=== PATIENT | female | born 1990 | race Asian ===

== ENCOUNTER 2024-05-26 08:00 | Outpatient (CLI) | payer OTHER ==
[2024-05-26 16:36] LABS: BILIRUBIN,URINE NEGATIVE (NEGATIVE); GLUCOSE, URINE (UA) NEGATIVE (NEGATIVE); KETONES,URINE (UA) NEGATIVE (NEGATIVE); LEUKOCYTE ESTERASE, URINE NEGATIVE (NEGATIVE); NITRITE,URINE NEGATIVE (NEGATIVE); OCCULT BLOOD,URINE NEGATIVE (NEGATIVE); PROTEIN,URINE NEGATIVE (NEGATIVE); UROBILINOGEN,URINE 0.2 (NORMAL) E.U./dL (NORMAL)
[2024-05-26 16:38] LABS: CLARITY,URINE CLEAR (CLEAR)
[2024-05-26 16:45] LABS: BACTERIA,URINE Moderate /HPF (None Seen); RBC,URINE 0-5 /HPF (0-5); SQUAMOUS EPITHELIAL CELL,UR MOD Squamous (<= Few); WBC,URINE 0-3 /HPF (0-5)
== END 2024-05-26 23:59 | disposition home or self-care (01) ==
LOC: LAB.WC 08:00
PROVIDERS: ATTEND Nurse Practitioner
DX: Z34.80 Encounter for supervision of other normal pregnancy, unspecified trimester (principal)
CPT/HCPCS: 81001; 87086

== ENCOUNTER 2024-12-14 16:52 | Inpatient (IN) ==
[2024-12-14] MEDS ORDERED: hydrALAZINE INJ 20 MG/ML VIAL IVP PRN (17:24)
[2024-12-14] MEDS ORDERED: lidocaine 1% 20 ML MDV ID PRN (17:24)
[2024-12-14] MEDS ORDERED: SODIUM CHLORIDE FLUSH 0.9% 10 ML SYRINGE IVP PRN (17:24)
[2024-12-14] MEDS ORDERED: TRANEXAMIC ACID IN NACL 1,000 MG/100 ML BAG IV PRN (17:24)
[2024-12-14] MEDS ORDERED: miSOPROStoL 200 MCG TABLET PR PRN (17:24)
[2024-12-14] MEDS ORDERED: LABETALOL 20 MG/4 ML SYRINGE IVP PRN ×3 (17:24)
[2024-12-14] MEDS ORDERED: METHYLERGONOVINE 0.2 MG/ML VIAL IM PRN (17:24)
[2024-12-14] MEDS ORDERED: miSOPROStoL 200 MCG TABLET BC PRN (17:24)
[2024-12-14] MEDS ORDERED: OXYTOCIN 10 UNIT/ML VIAL IM PRN (17:24)
[2024-12-14] MEDS ORDERED: fentaNYL 100 MCG/2 ML VIAL IVP PRN (17:24)
[2024-12-14] MEDS ORDERED: NIFEdipine 10 MG CAPSULE PO PRN (17:24)
[2024-12-14] MEDS ORDERED: TERBUTALINE 1 MG/ML VIAL SUBQ PRN (17:24)
[2024-12-14] MEDS ORDERED: OXYTOCIN/SODIUM CHLORIDE 500 ML IV PRN (17:24)
--- NOTE | 2024-12-14 17:33 | PROVIDER PROGRESS NOTE ---
HPI Current : Current [facility] 12/29/24 Gestation 37 Weeks and 6 Days Para 1 Vital Signs Temperature 36.8 C 12/14/24 17:10 Pulse Rate 95 12/14/24 17:10 Respiratory Rate 16 12/14/24 17:10 Blood Pressure 134/75 H 12/14/24 17:10 Procedures NST Procedure: NST Procedure Start Date 12/14/24 Start Time 17:01 Stop Time 17:21 Vibroacoustic Stimulation Used No Patient States Movement Yes Plan Plan: Patient triaged: @ 37+6 days gestation. Reactive NST FHT 135, moderate variability, + accelerations, - decelerations 5/80/-2, intact Katie q 2-3 minutes, moderate intensity, soft uterine resting tone. Desires admission for expectant management.
--- NOTE | 2024-12-14 17:39 | HISTORY & PHYSICAL EXAMINATION ---
Admit History Smoking Status: Never smoker Other Maternal History Other Maternal History: HPI: This 33 yo @ 37+6 weeks by LMP and confirmed by 14+0 week ultrasound. She started stephan q 10 minutes yesterday and was checked in the clinic yesterday and was 3-4cm/60%/-3. She was able to get some sleep last night but the pain woke her up later in the morning and they continued to become stronger and closer together. Upon arrival her cervix was 5/80/-2 and vertex with intact membranes. We reviewed management options at length and patient desires to be admitted for expectant management. She has been a patient of [facility] for the duration of her which has remained uncomplicated with the exception of GDM A1, very tight control. ROS: No Headache, visual changes or right upper quadrant abdominal pain. Denies significant N/V. Denies urinary urgency or dysuria. All other symptoms reviewed and were negative except per HPI. In the event of an emergency, accepts the administration of blood products. Recent BP: WNL Labs: pending Last u/s EFW: 2946 g, 50th percentile @ 36+3 weeks Total maternal weight gain: 41# OB Hx: G1: 06/16/2018 @ [facility]. Male (Winter) 7# 4oz, had an epidural at 8cm, then delivered quickly thereafter. Had severe hypotensive event during epidural placement as well that she associates with the as the placement and were so close in timing. Very short second stage. Pushed 5-10 minutes. G2: current Medical Hx: No significant Surgical Hx: None Social Hx: Monogamous with male partner. Denies current use of alcohol or tobacco, marijuana or other recreational drugs. Reports that she is safe in current relationship. [place] until January 2025 [place] Family Hx: Denies family history of congenital anomalies, Cystic Fibrosis or chromosomal abnormalities LMP: 03/24/2024 TESS by LMP: 12/29/2024 U/S: 06/30/2024 @ 14 weeks TESS. C/W LMP dating Final TESS: 12/30/2023 Problem- GDM A1, diabetic education completed. Monthly growth scans ordered Allergies: NKDA RX: PNV, Iron FMHX: FOB: Fely Senior Other Children: Son (Winter), age 6 sex: Its a BOY! Vinicio Pre- weight: 112 BMI: 18.6 Blood type: AB pos Antibody screen: neg CBC: PLT 221 HCT36.2 HGB 11.8 Rubella: immune VZV: immune HBsAg: neg HepC: NR RPR/AB-EIA: NR HIV: NR Flu: desires at next visit COVID: x3, declines booster PAP: UTD per pt GC/CT: neg HSV: denies in self and partner Genetic Testing: NIPT neg FAS: Placenta: posterior, no previa Cord: 3 VC VIANEY: 14cm EFW: 61.5%tile 12/05/2024 u/s IMPRESSION: 1.Single live intrauterine consistent with 36 weeks and 3 days. Normal interval growth with estimated weight in the 50th percentile. 2.Again seen mild bilateral pelvocaliectasis measuring 5 mm on the right and 7 mm on the left, upper limits of normal on the left and stable compared to prior. 50gm GCT: 169 3 hr GTT: F-91, 1hr 187 2hr 196 3hr 160 TDAP: 10/18/2024 Breast Pump: 10/18/2024 3rd trimester 184 33.5/10.7 GBS: Negative Delivery plan: Anticipate . Desires unmedicated delivery. Had a poor experience with epidural with her first delivery. Made it to 8cm and then asked for epidural and had to have 2 attempts as first only numbed her legs and she was still able to feel contractions. She then had severely decreased blood pressure and passed out. Delivered her baby 20 minutes later after a 5-10 minute second stage and feels that whole experience was very traumatic. contraception plan: undecided Physical exam: Normocephalic, atraumatic No increased work of breathing Abdomen gravid, soft, nontender. EFW 3300 FHR baseline 134-140, moderate variability, + accelerations, no significant decelerations Contractions palpate moderate every 3-5 minutes with soft resting tone SVE 5/80/-2, vertex, membranes intact Bilateral LE's trace edema Mood is good. Assessment: 33 yo @ 37+6 weeks gestation by sure LMP and 14 week U/S Latent labor Advanced dilatation in multiparous patient FHR 135-145 Cat I GBS NEG Plan: Admit to [facility] for expectant management Intermittent heart rate auscultation. Okay for NST q 2 hours until labor advances. Jacuzzi PRN. Nitrous oxide PRN. Epidural PRN Maternal Request. Anticipate . HPI Current : Current [facility] 12/29/24 Gestation 37 Weeks and 6 Days Para 1 Vital Signs Temperature 36.8 C 12/14/24 17:10 Pulse Rate 95 12/14/24 17:10 Respiratory Rate 16 12/14/24 17:10 Blood Pressure 134/75 H 12/14/24 17:10 NST Procedure NST Procedure: NST Procedure Start Date 12/14/24 Start Time 17:01 Stop Time 17:21 Vibroacoustic Stimulation Used No Patient States Movement Yes Meds/Allgy Home Medications Ambulatory Orders Medication Instructions Recorded Confirmed vitamins no.159-iron tab PO 06/30/24 12/13/24 fumarate 28 mg-folic acid 800 mcg tablet ( Vitamin) blood sugar diagnostic #200 ea 10/14/24 12/13/24 blood-glucose meter #1 ea 10/14/24 12/13/24 ferrous sulfate 325 mg (65 mg 325 mg PO BID #180 tabs 10/14/24 12/13/24 iron) tablet lancets #200 ea 10/14/24 12/13/24 Allergies Allergies Allergy/AdvReac Type Severity Reaction Status Date / Time No Known Drug Allergies Allergy Verified 12/13/24 13:36 PFSH Active Problems All Active Problems (Updated 10/14/24 @ 12:46 by Haily Gonzalez CNM, RIK) Anemia complicating (Acute) Gestational diabetes mellitus (GDM) (Acute) Influenza A (Acute) URI (upper respiratory infection) (Acute) Supervision of normal intrauterine in multigravida in second trimester (Acute) Medical History Medical History (Updated 10/14/24 @ 12:46 by Haily Gonzalez CNM, RIK) Impaired glucose in , antepartum Supervision of normal intrauterine in multigravida in first trimester Family History Family History (Updated 06/30/24 @ 13:27 by Sherin Lovell MA) Mother High blood pressure Father High blood pressure Social History Social History Smoking Status: Never smoker Do you vape?: No Physical Abdominal Exam Vital Signs: Temp Pulse Resp BP 36.8 C 95 16 134/75 H 12/14/24 17:10 12/14/24 17:10 12/14/24 17:10 12/14/24 17:10 Plan for Labor Plan For Labor I expect patient to be DC'd or transferred within 96 hours.: Yes
[2024-12-14 18:19] LABS: BASOPHILS % (AUTO) 0.2 %; EOSINOPHILS # (AUTO) 0.1 10^3/uL (0.0-0.7); EOSINOPHILS % (AUTO) 0.7 %; HCT - HEMATOCRIT 39.3 % (37.0-47.0); HGB - HEMOGLOBIN 12.8 g/dL (12.0-16.0); LYMPHOCYTES # (AUTO) 2.3 10^3/uL (1.5-3.5); LYMPHOCYTES % (AUTO) 27.3 %; MEAN CORPUSCULAR HEMOGLOBIN 28.2 pg (27.0-31.0); MEAN CORPUSCULAR HGB CONC 32.6 g/dL (32.0-36.0); MEAN CORPUSCULAR VOLUME 86.6 fL (81.0-99.0); MEAN PLATELET VOLUME 9.5 fL (7.9-10.8); MONOCYTES # (AUTO) 0.7 10^3/uL (0.0-1.0); MONOCYTES % (AUTO) 8.3 %; NEUTROPHILS # (AUTO) 5.1 10^3/uL (1.5-6.6); PLT - PLATELET COUNT 170 10^3/uL (130-450); RED BLOOD COUNT 4.54 10^6/uL (4.20-5.40); RED CELL DISTRIBUTION WIDTH 13.8 % (12.0-15.0); WHITE BLOOD COUNT 8.3 x10^3/uL (4.8-10.8)
--- NOTE | 2024-12-14 20:29 | PROVIDER PROGRESS NOTE ---
Labor Progress Note Labor Progress Note Labor Progress Note/Additional Text: SVE /-1, becoming more uncomfortable but still laughing between contractions. Continues to desire an unmedicated . Well supported tonight by her sister and her adult niece. Desires labor augmentation. AROM, large amount of moderately thick meconium. Meconium communicated with pediatrics and back up OB. Transition to continuos monitoring.
[2024-12-15] MEDS: LACTATED RINGERS 1,000 ML IV PRN (00:20)
[2024-12-15] MEDS: OXYTOCIN/SODIUM CHLORIDE 500 ML IV SCH (00:20)
[2024-12-15] MEDS: SODIUM CHLORIDE FLUSH 0.9% 10 ML SYRINGE IVP SCH (00:45)
--- NOTE | 2024-12-15 05:55 | PROVIDER PROGRESS NOTE ---
Subjective Subjective Subjective: Labor progressing, Arleth describes increasing discomfort and less of an ability to "laugh." SVE 7/80/0 (SVE essentially unchanged from 0330 but a notable change in station from -1 to 0 station) category I tracing. Pitocin titration at 5mu/min. Contractions q 1-4 minutes, dysfunctional labor pattern. Coupling/tripling. FHR baseline 140, moderate variability, + accelerations, reassuring early decelerations. Declined trial of nitrous. Desires epidural. Anesthesia on unit with another patient but will notify when he is able to leave the room. Discussed with primary RN recommendation for fluid bolus prior to epidural placement as she had significant syncopal episode with previous . Current Medications Current Medications Current Medications: Current Medications Generic Name Dose Route Start Last Admin Trade Name Freq PRN Reason Stop Dose Admin Acetaminophen 1,000 mg 12/14/24 17:24 Acetaminophen 500 Mg Tablet PO Q8H PRN Mild Pain or Fever>38C(100.4F) Fentanyl 50 mcg 12/14/24 17:24 Fentanyl 100 Mcg/2 Ml Vial IVP Q1H PRN Severe Pain (score 7-10) Ferrous Sulfate 325 mg 12/14/24 21:00 Ferrous Sulfate 325 Mg Tablet PO BID TONYA Hydralazine HCl 5 - 10 mg 12/14/24 17:24 Hydralazine Inj 20 Mg/Ml Vial IVP Q20M PRN SBP> or= 160 OR DBP> or= 110 Protocol Lactated Ringer's 500 mls @ 999 mls/hr 12/14/24 17:24 12/15/24 00:20 Lr IV 100 mls/hr PRN PRN Administration intrauterine resuscitation Oxytocin/Sodium Chloride 500 mls @ 999 mls/hr 12/14/24 17:24 Pitocin/Sodium Chloride IV PRN PRN POST- HEMORR PREVENTION Protocol 999 MILLIUNIT/MIN Tranexamic Acid 1,000 mg in 100 mls @ 600 mls/hr 12/14/24 17:24 Tranexamic 1,000 Mg/100ml-Nacl IV Q30M PRN EBL >1200mL and within 3hr Oxytocin/Sodium Chloride 500 mls @ 1 mls/hr 12/15/24 01:00 12/15/24 05:13 Pitocin/Sodium Chloride IV 6 milliunit/min TITR TONYA 6 mls/hr Titration Protocol 1 MILLIUNIT/MIN Labetalol HCl 20 - 80 mg 12/14/24 17:24 Labetalol 20 Mg/4 Ml Syringe IVP Q10M PRN SBP> or= 160 OR DBP> or= 110 Protocol Labetalol HCl 20 mg 12/14/24 17:24 Labetalol 20 Mg/4 Ml Syringe IVP .ONCE PRN SBP> or= 160 OR DBP> or= 110 Protocol Labetalol HCl 20 - 40 mg 12/14/24 17:24 Labetalol 20 Mg/4 Ml Syringe IVP Q10M PRN SBP> or= 160 OR DBP> or= 110 Protocol Lidocaine HCl 20 ml 12/14/24 17:24 Lidocaine 1% 20 Ml Mdv ID 12/17/24 17:24 .ONCE PRN PERINEAL REPAIR Methylergonovine Maleate 0.2 mg 12/14/24 17:24 Methylergonovine 0.2 Mg/Ml Vial IM .ONCE PRN Hemorrhage Misoprostol 600 mcg 12/14/24 17:24 Misoprostol 200 Mcg Tablet BC .ONCE PRN Hemorrhage Misoprostol 800 mcg 12/14/24 17:24 Misoprostol 200 Mcg Tablet MD .ONCE PRN Hemorrhage Nifedipine 10 - 20 mg 12/14/24 17:24 Nifedipine 10 Mg Capsule PO Q20M PRN SBP> or= 160 OR DBP> or= 110 Protocol Oxytocin 10 unit 12/14/24 17:24 Oxytocin 10 Unit/Ml Vial IM .ONCE PRN Step One if no IV access. Multivit/Folic Acid/Iron 1 tab 12/15/24 08:00 Vitamin Tablet PO DAILYWM TONYA Sodium Chloride 10 ml 12/14/24 17:24 Sodium Chloride Flush 0.9% 10 Ml Syringe IVP PRN PRN NEEDED PER PROVIDER ORDERS Sodium Chloride 10 ml 12/14/24 18:00 12/15/24 00:45 Sodium Chloride Flush 0.9% 10 Ml Syringe IVP Not Given Q8H TONYA Terbutaline Sulfate 0.25 mg 12/14/24 17:24 Terbutaline 1 Mg/Ml Vial SUBQ .ONCE PRN Tachystole Objective Vital Signs/Intake & Output Intake & Output: Intake & Output 12/12/24 12/13/24 12/14/24 12/15/24 23:59 23:59 23:59 23:59 Intake Total Balance Weight (kg) 153 lb Lab Results 12/14/24 18:13 Other Labs: Lab Results x24hrs 12/14/24 Range/Units 18:13 WBC 8.3 (4.8-10.8) x10^3/uL RBC 4.54 (4.20-5.40) 10^6/uL Hgb 12.8 (12.0-16.0) g/dL Hct 39.3 (37.0-47.0) % MCV 86.6 (81.0-99.0) fL MCH 28.2 (27.0-31.0) pg MCHC 32.6 (32.0-36.0) g/dL RDW 13.8 (12.0-15.0) % Plt Count 170 (130-450) 10^3/uL MPV 9.5 (7.9-10.8) fL Neut # (Auto) 5.1 (1.5-6.6) 10^3/uL Lymph # (Auto) 2.3 (1.5-3.5) 10^3/uL [place] # (Auto) 0.7 (0.0-1.0) 10^3/uL Eos # (Auto) 0.1 (0.0-0.7) 10^3/uL Baso # (Auto) 0.0 (0.0-0.1) 10^3/uL Absolute Nucleated RBC 0.00 x10^3/uL Nucleated RBC % 0.0 /100WBC Blood Type AB POSITIVE Antibody Screen NEGATIVE
[2024-12-15] MEDS ORDERED: ROPIVACAINE 0.2% 200 MG/100 ML BAG EP ONE (06:01)
[2024-12-15] MEDS ORDERED: LIDOCAINE 2%-EPI 1:100000 20 ML MDV ONE (06:01)
[2024-12-15] MEDS ORDERED: ePHEDrine 50 MG/ML VIAL IVP PRN (07:16)
[2024-12-15] MEDS ORDERED: LACTATED RINGERS 500 ML IV ONE (07:16)
[2024-12-15] MEDS ORDERED: NALOXONE 0.4 MG/ML VIAL IVP PRN (07:16)
[2024-12-15] MEDS ORDERED: ROPIVACAINE 0.2% 200 MG/100 ML BAG EP PRN (07:16)
[2024-12-15] MEDS ORDERED: METOCLOPRAMIDE 10 MG/2 ML VIAL IVP PRN (07:16)
[2024-12-15] MEDS ORDERED: ONDANSETRON 4 MG/2 ML VIAL IVP PRN (07:16)
[2024-12-15] MEDS ORDERED: NALBUPHINE 10 MG/ML AMP IVP PRN (07:16)
[2024-12-15] MEDS ORDERED: diphenhydrAMINE INJ 50 MG/ML VIAL IVP PRN (07:16)
--- NOTE | 2024-12-15 07:21 | ANESTHESIA PROCEDURE NOTE ---
Pre-Anesthesia VS, & Labs Diagnosis Surgical Diagnosis:: labor pain Procedure Procedure: labor epidural Vitals Vital Signs: Temp Pulse Resp BP 36.8 C 95 16 134/75 H 12/14/24 17:28 12/14/24 17:10 12/14/24 17:10 12/14/24 17:10 Height (in): 5 ft Weight (kg): 69 kg Body Mass Index: 29.7 BMI Classification: Overweight NPO Last Fluid Intake: clears now Is Patient ?: Yes Lab Results Current Lab Results: Laboratory Tests 12/14/24 18:13: WBC 8.3, RBC 4.54, Hgb 12.8, Hct 39.3, MCV 86.6, MCH 28.2, MCHC 32.6, RDW 13.8, Plt Count 170, MPV 9.5, Neut # (Auto) 5.1, Lymph # (Auto) 2.3, [place] # (Auto) 0.7, Eos # (Auto) 0.1, Baso # (Auto) 0.0, Absolute Nucleated RBC 0.00, Nucleated RBC % 0.0, Blood Type AB POSITIVE, Antibody Screen NEGATIVE Lab results reviewed: Yes 12/14/24 18:13 Meds/Allgy Home Medications Ambulatory Orders Medication Instructions Recorded Confirmed vitamins no.159-iron tab PO 06/30/24 12/13/24 fumarate 28 mg-folic acid 800 mcg tablet ( Vitamin) blood sugar diagnostic #200 ea 10/14/24 12/13/24 blood-glucose meter #1 ea 10/14/24 12/13/24 ferrous sulfate 325 mg (65 mg 325 mg PO BID #180 tabs 10/14/24 12/13/24 iron) tablet lancets #200 ea 10/14/24 12/13/24 Allergies Allergies Allergy/AdvReac Type Severity Reaction Status Date / Time No Known Drug Allergies Allergy Verified 12/13/24 13:36 PFSH Active Problems All Active Problems Anemia complicating (Acute) Gestational diabetes mellitus (GDM) (Acute) Influenza A (Acute) URI (upper respiratory infection) (Acute) Supervision of normal intrauterine in multigravida in second trimester (Acute) Medical History Medical History Impaired glucose in , antepartum Supervision of normal intrauterine in multigravida in first trimester Family History Family History Mother High blood pressure Father High blood pressure Social History Social History Smoking Status: Never smoker Do you vape?: No Anesthesia Exam (Expanded) Exam General: Alert and No acute distress Mouth Openin Fingerbreadth Neck Mobility: Normal Mallampati classification: II Thyromental Distance: 4-6 cm Plan Plan Anesthesia Type: Epidural Consent for Procedure(s) Verified and Reviewed: Yes Code Status: Attempt Resuscitation ASA Classification ASA classification: 2-Mild systemic disease Is this case an emergency?: No
--- NOTE | 2024-12-15 09:05 | DELIVERY NOTE ---
Delivery Note Delivery Outcome Delivery Date: 12/15/24 Delivery Time: 08:30 Delivery Comments (Free Text/Narrative) Delivery Comments (Free Text/Narrative): This 33 -year-old, @ 37+6 weeks gestation by certain LMP and confirmed by 14 week ultrasound presented to L&D in prodromal labor. Upon presentation her cervix was 5/70/-2 and in stable condition. upon reevaluation her cervix had made change, she desired augmentation to allow her to move toward delivery. GBS negative. Augmented with oxytocin, maximum infusion of 5mu/min. FHR pattern demonstrated 135 baseline in a category I prior to second stage. Normal labor course. Epidural placed upon maternal request. AROM occurred 12/14/2024 @ 1930, moderate meconium. She then progressed to complete/complete and active pushing began 12/15/2024 @ 08:04. : Normal spontaneous vaginal delivery of a viable male infant on 12/15/2024 @ 0830. Nuchal x I, reduced. The was placed on maternal abdomen, stimulated, dried and placed skin to skin. Apgars 5/8/9 @ 1, 2 & 5 minutes. The umbilical cord was allowed to stop pulsating at which time it was doubly clamped and cut by delivering provider. Pediatrics attended the given the presence of moderate meconium. 3VC. Cord blood was obtained. Fundal massage and gently cord traction applied for active management of the third stage, placenta delivered spontaneously and appeared intact. EBL 175cc. Placenta was not sent to pathology. Pitocin administered via IV for hemostasis and allowed to run freely. Uterine massage was performed until uterus was deemed firm. weight 3746g. Inspection of the perineum noted an first-degree midline laceration, likely along the scar tissue from previous laceration. The laceration was repaired under epidural anesthesia with running 3-0 vicryl rapide, repaired in standards fashion under sterile conditions. Upon re-inspection the patient was hemostatic. Uterus again massaged and found to be firm. Needle and sponge counts were correct. Uterine fundus firm and there is no excessive bleeding. Tissues well approximated. Skin to skin initiated. Family bonding well. Both mother and baby are in stable condition.
[2024-12-15] MEDS: ACETAMINOPHEN 500 MG TABLET PO PRN (09:20)
--- NOTE | 2024-12-15 12:22 | PHARMACY PROGRESS NOTE ---
Best Possible Medication History Admit Date and Time: 12/14/24 1724 Home Medications Medication Instructions Recorded Confirmed Type vitamins no.159-iron 1 tab PO DAILY 06/30/24 12/15/24 History fumarate 28 mg-folic acid 800 mcg tablet ( Vitamin) blood sugar diagnostic #200 ea 10/14/24 12/15/24 Rx blood-glucose meter #1 ea 10/14/24 12/15/24 Rx ferrous sulfate 325 mg (65 mg 325 mg PO BID #180 tabs 10/14/24 12/15/24 Rx iron) tablet lancets #200 ea 10/14/24 12/15/24 Rx Processed by: Pharmacy (Medication reconciliation completed by Bow StaplerZoë) Medications reviewed in ED?: No Medication History completed: Yes Patient Interview: Completed Secondary Source(s): Insurance records [facility] Statement: As the person ultimately responsible for medication therapy, providers are able to order a medication from an existing home medication list in [facility] via the "Reconcile Routine" prior to Confirmation of that medication by arch support technician. Such practice is discouraged except when the physician, in their clinical judgment, deems that a medical need exists for a medication without regard to previous use.
[2024-12-15] MEDS: FERROUS SULFATE 325 MG TABLET PO SCH (19:07)
[2024-12-15] MEDS: PRENATAL VITAMIN TABLET PO SCH (19:08)
--- NOTE | 2024-12-16 05:12 | Discharge Summary ---
Discharge Summary HOSPITAL COURSE Hospital Course: Date of Admission: 12/14/2024 Date of Discharge: 12/16/2024 Diagnosis on admission: 33 yo @ 37+6 weeks gestation by sure LMP and 14 week U/S Latent labor Advanced dilatation in multiparous patient FHR 135-145 Cat I GBS NEG Diagnosis on Discharge 33 yo PPD #1 1st degree perineal laceration with repair Unremarkable course Physical exam: Normocephalic, atraumatic No increased work of breathing Normal uterine involution, FF below umbilicus Small rubra bleeding Minimal perineal discomfort. Bilateral LE's no edema Mood is good. Brief History: She is a patient of [facility] who presented on 12/14/2024 @ 37+6 weeks gestation by certain LMP and confirmed by 14 week ultrasound presented to L&D in prodromal labor. Upon presentation her cervix was 5/70/-2 upon reevaluation her cervix had made change, she desired augmentation to allow her to move toward delivery. GBS negative. Augmented with oxytocin, maximum infusion of 5mu/min. FHR pattern demonstrated 135 baseline in a category I prior to second stage. Normal labor course. Epidural placed upon maternal request. AROM occurred 12/14/2024 @ 1930, moderate meconium. She then progressed to complete/complete and active pushing began 12/15/2024 @ 08:04. Spontaneous vaginal delivery of a viable male infant on 12/15/2024 @ 0830. Nuchal x I, reduced. She spontaneously delivered a viable female @ 1, 2 & 5 minutes. EBL 175 ml. First degree perineal laceration. weight: 3746g. low risk but complicated by GDM A1, tight glycemic control. She has been doing well in her course. Her is deployed but [place] She is ambulating and tolerating a regular diet. She is urinating without difficulty and her lochia is normal. Her pain is well controlled without narcotic management. She will be discharged to home today on day #1 and encouraged IBU, tylenol and stool softeners PRN. She intends to follow up with myself at [facility] for telehealth 12/22/2024 @ 1230 for 1 week telehealth pp follow-up appointment. She has been given precautions to call if she has any new or worsening sx such as fevers, chills, abdominal pain, increasing bleeding, or foul smelling vaginal lochia. preeclamptic precautions reviewed as well. VZV: Immune Rubella: Immune RH: AB+ ALLERGIES Allergies Allergy/AdvReac Type Severity Reaction Status Date / Time No Known Drug Allergies Allergy Verified 12/13/24 13:36 MEDICATIONS Ambulatory Orders Medication Instructions Recorded Confirmed vitamins no.159-iron 1 tab PO DAILY 06/30/24 12/15/24 fumarate 28 mg-folic acid 800 mcg tablet ( Vitamin) ferrous sulfate 325 mg (65 mg 325 mg PO BID #180 tabs 10/14/24 12/15/24 iron) tablet PHYSICAL EXAM AT DISCHARGE Vital Signs: Vital Signs x48h Temp Pulse Resp BP 12/16/24 04:20 36.4 C L 88 16 104/65 LABS 12/14/24 18:13 Discharge Plan Discharge Patient Disposition: 01 LONG-TERM, Self Care Medically Cleared Date:: 12/16/24 Prescriptions: Continued ferrous sulfate 325 mg (65 mg iron) tablet 325 mg PO BID Qty: 180 3RF Vitamin 28 mg iron- 800 mcg tablet 1 tab PO DAILY Discontinued (DME) blood-glucose meter Kit See Rx Instructions .ROUTE .MEDSUPPLY Qty: 1 0RF Rx Instructions: 4 times per day as directed (DME) lancets Misc See Rx Instructions .ROUTE .MEDSUPPLY Qty: 200 4RF Rx Instructions: 4 times per day as directed (DME) blood sugar diagnostic Strip See Rx Instructions .ROUTE .MEDSUPPLY Qty: 200 4RF Rx Instructions: 4 times per day via meter as directed Print Language: [place] Patient Instructions: Breastfeed Holds
[2024-12-16 12:55] VITALS: BP 126/72; TEMP 97.9; O2SAT 99
--- NOTE | 2024-12-16 13:01 | Labor Flowsheet ---
Labor Flowsheet Datetime Report Generated by CPN: 12/16/2024 13:01 Datetime: 12/16/2024 10:16 VITAL SIGNS NBP Sys/Maria Dolores/Mean (mmHg): 114 : 71 : 81 Pulse: 98 LaborFlag: Labor Datetime: 12/15/2024 08:44 SpO2 (%): 99 Datetime: 12/15/2024 08:30 UTERINE ACTIVITY Monitor Mode: External Frequency (min): 2-6 Quality: Strong Duration (sec): 60 Pattern: Normal: <= 5 Contractions in 10 Minutes Resting Tone (Palpate): Relaxed Comments: FHT 140s in between pushing. STAGE 2 Stage 2 Comments: Delivered Datetime: 12/15/2024 08:15 ASSESSMENT A Monitor Mode: External US FHR Baseline Rate : 140 Variability: Moderate 6-25 bpm Accelerations: 10X10 Decelerations: Variable Category: Category II PATIENT CARE Oxygen Method: Room Air Datetime: 12/15/2024 08:00 Contraction Comments: pushing FHR Baseline Changes: No Baseline Change Datetime: 12/15/2024 07:30 Respirations: 16 Temperature (C): 36.5 Datetime: 12/15/2024 07:09 Patient Care Comments: turning from side to side Datetime: 12/15/2024 06:59 Monitor Interventions for FHR: Ultrasound Adjusted Datetime: 12/15/2024 06:55 PAIN Pain Presence: None/Denies Datetime: 12/15/2024 06:52 Pain Type: Cramping Pain Relief Measures: Epidural Given Pain Assessment Comments: states contractions are easing off Patient Position/Activity: Right Tilt Datetime: 12/15/2024 06:26 Epidural Procedure: Loading Dose Datetime: 12/15/2024 06:25 Monitor Interventions for UA: [place] Adjusted Datetime: 12/15/2024 06:18 Anesthesia Comments: local anaesthesia Datetime: 12/15/2024 06:04 PROCEDURE TIME OUT Procedure Verify: Correct Patient Identity; Correct Side and Site are Marked; Accurate Procedure Co nsent Form; Agreement on Procedure to be Done; Correct Patient Position; Relevant Images and Results are Properly Labeled and Displayed; Addressed Need to Administer Antibiotics or Fluids for Irrigation ; Safety Precautions Based on Patient History or Medication Use ANESTHESIA Anesthesia Plans: Epidural Epidural Positioning: Sitting Datetime: 12/15/2024 05:35 Pain Location: Abdomen; Back Pain Coping: Requesting Pain Medication or Epidural VAGINAL EXAM Dilatation (cm): 7.0 Effacement (%): 80 Station: -1 Vaginal Bleeding: Normal Show Cervix, Consistency: Soft Datetime: 12/15/2024 04:14 MEDICATIONS Pitocin (milliunits): Increased to @ 5 Datetime: 12/15/2024 03:30 Exam by: K Burckhardt Cervix, Position: Anterior Datetime: 12/15/2024 02:13 MATERNAL ASSESSMENT Level of Consciousness: Alert Breath Sounds, Right: Clear and Equal Nausea/Vomiting: Denies Datetime: 12/15/2024 01:15 I/O Interventions: Clear Liquids Given Datetime: 12/15/2024 00:16 Headache: Denies Datetime: 12/14/2024 23:01 Hygiene: Underpad Changed; Peripad Changed TEACHING Plan of Care: Plan of Care Discussed Labor/Induction: Labor Stages Datetime: 12/14/2024 22:00 Membranes Ruptured Date/Time: 12/14/2024 19:30 Cervical Ripening Agents: Cytotec @ Datetime: 12/14/2024 21:33 Stage of : Labor Provider Reviewed Strip: Yes COMMUNICATION Communication: Provider at Bedside Datetime: 12/14/2024 19:52 DTR's/Clonus: DTRs 2+; No Clonus Breath Sounds, Left: Clear and Equal RUQ Epigastric Pain: Denies Datetime: 12/14/2024 19:30 Lie 'A': Longitudinal Vaginal Exam Comments: AROM Datetime: 12/14/2024 19:29 Membrane Status: Ruptured Membranes Rupture Method: Artificial Amniotic Fluid Color: Light Meconium Amniotic Fluid Amount: Moderate Amniotic Fluid Odor: Normal
== END 2024-12-16 12:50 | disposition home or self-care (01) | DRG 807 ==
LOC: WFO 16:52 → FBP 16:56
PROVIDERS: ADMIT Nurse Practitioner; ATTEND Nurse Practitioner